=== PATIENT | male | born 1950 | race Caucasian/White ===

== ENCOUNTER → 2016-08-31 | Outpatient (CLI) | payer OTHER ==
--- NOTE | 2016-08-31 18:42 | CPEEG ---
[f rep st] ELECTROENCEPHALOGRAM 4-HOUR VIDEO ELECTROENCEPHALOGRAM DATE OF STUDY: 08/31/2016 DATE OF INTERPRETATION: 08/31/2016 INTERPRETATION: This 4-hour video EEG recording is essentially normal. There were no definite pote ntially epileptogenic abnormalities present in the awake or sleep recordings. There were rare, elton ply contoured wave forms of uncertain clinical significance over the left temporal head region durin g sleep. If clinically indicated, a repeat EEG or extended 24-hour ambulatory EEG could be performe d to clarify the nature of these findings. The patient did not have any clinical events during the video EEG monitoring session. REPORT: This 4-hour video EEG contains 9 Hz alpha to the posterior head regions. There was no abno rmal activation at rest, or during photic stimulation or hyperventilation. The patient became drows y and fell into sustained sleep during the study. During sleep, there were rare, sharply contoured wave forms of uncertain clinical significance over the left temporal head region. There was no defi nite abnormal activation during drowsiness, sleep, or during times of arousal. The patient did not have any clinical events during the video EEG monitoring session. /[id number]/MODL
== END ==
LOC: FCPNEURO 10:03
PROVIDERS: ATTEND Psychiatry & Neurology Neurology
DX: G40.909 Epilepsy, unspecified, not intractable, without status epilepticus (principal)

== ENCOUNTER → 2016-09-02 | Outpatient (CLI) | payer OTHER | LOC: FIMAGING 09:37 | PROVIDERS: ATTEND Psychiatry & Neurology Neurology | DX: G40.909 Epilepsy, unspecified, not intractable, without status epilepticus (principal) ==